=== PATIENT | male | born 1995 | race Caucasian/White ===

== ENCOUNTER 2017-09-12 10:31 | Emergency (ER) | payer MEDICAID ==
[~2017-09-12] VITALS: Ht 188 cm; Wt 148.0 kg
[2017-09-12] MEDS ORDERED: CEPH-571 PO (11:33)
[2017-09-12 11:44] VITALS: BP 146/84
== END 2017-09-12 11:45 | disposition home or self-care (01) ==
LOC: ER 10:33
DX: L72.0 Epidermal cyst (principal); G89.18 Other acute postprocedural pain; Z88.2 Allergy status to sulfonamides; Z91.013 Allergy to seafood
CPT/HCPCS: 99283

== ENCOUNTER 2018-05-27 21:26 | Emergency (ER) | payer MEDICAID ==
[~2018-05-27] VITALS: Ht 188 cm; Wt 139.1 kg
[~2018-05-27 21:26] MED LIST: CEPH-571 PO
[2018-05-27 21:32] VITALS: BP 152/108
[2018-05-27] MEDS ORDERED: NEOM10SO7 OT (21:45)
== END 2018-05-27 21:50 | disposition home or self-care (01) ==
LOC: ER 21:27
DX: H60.91 Unspecified otitis externa, right ear (principal); Z88.2 Allergy status to sulfonamides; Z91.013 Allergy to seafood
CPT/HCPCS: 99283

== ENCOUNTER 2019-06-03 09:53 | Emergency (ER) | payer MEDICAID ==
[~2019-06-03] VITALS: Ht 188 cm; Wt 140.7 kg
[~2019-06-03 09:53] MED LIST changes: +NEOM10SO7 OT
[2019-06-03 10:09] VITALS: BP 147/102
[2019-06-03] MEDS ORDERED: IBUP-1984 PO (11:28)
[2019-06-03] MEDS ORDERED: PENI500T2 PO (11:28)
== END 2019-06-03 11:49 | disposition home or self-care (01) ==
LOC: ER 09:53
DX: K04.5 Chronic apical periodontitis (principal); G89.29 Other chronic pain; K08.89 Other specified disorders of teeth and supporting structures; Z88.2 Allergy status to sulfonamides; Z91.013 Allergy to seafood
CPT/HCPCS: 99283

== ENCOUNTER 2021-02-01 20:10 | Emergency (ER) | payer MEDICAID ==
[~2021-02-01] VITALS: Ht 185.4 cm; Wt 116.6 kg
[2021-02-01] MEDS ORDERED: AMOX-422 PO (21:39)
[2021-02-01 22:03] VITALS: BP 142/89
== END 2021-02-01 22:06 | disposition home or self-care (01) ==
LOC: ER 20:11
DX: H66.93 Otitis media, unspecified, bilateral (principal); Z88.2 Allergy status to sulfonamides; Z91.013 Allergy to seafood; Z79.899 Other long term (current) drug therapy
CPT/HCPCS: 99283

== ENCOUNTER 2024-06-24 16:17 | Emergency (ER) | payer MEDICAID ==
[~2024-06-24] VITALS: Ht 188 cm; Wt 144.7 kg
[2024-06-24 16:25] VITALS: TEMP 98.4
[2024-06-24 17:25] LABS: COLOR,URINE RED (Yellow)
[2024-06-24 17:26] LABS: CLARITY,URINE BLOODY (Clear); UA COLLECTION TYPE CLN CATCH MIDSTREAM
[2024-06-24 17:34] LABS: BACTERIA,URINE FEW /HPF (Neg); MUCUS STRANDS NONE SEEN /LPF (Neg); RBC,URINE TNTC /HPF (0-2); SQUAMOUS EPITHELIAL CELL,UR FEW /LPF (FEW); WBC,URINE 0-4 /HPF (0-4)
[2024-06-24 18:42] VITALS: BP 136/95; PULSE 73; RESP 16; O2SAT 96
== END 2024-06-24 18:50 | disposition home or self-care (01) ==
LOC: ER 16:17
DX: R31.9 Hematuria, unspecified (principal); F84.0 Autistic disorder; Z88.2 Allergy status to sulfonamides; Z91.013 Allergy to seafood; Z79.899 Other long term (current) drug therapy
CPT/HCPCS: 76770; 81001; 99284